=== PATIENT | male | born 1940 | race Caucasian/White ===

== ENCOUNTER → 2019-10-11 | Outpatient (CLI) | payer OTHER ==
[~2019-10-11] MED LIST: ADVAIR 100-501 EACH; ADVAIR HFA 230M12 GM INH; ALDACTONE25 MG; ASPIRIN81 M2; ATORVASTATIN CA80 MG PO; BRILINTA90 MG; CARVEDILOL25 MG PO; CENTRUM SILVER1 EAC4 PO; COZAAR 25 MG TA25 M1 PO; DIOVAN 80 MG TA80 M1 PO; DYAZIDE 37.5-21 EACH PO; EFFEXOR XR75 MG PO; ELIQUIS5 MG PO; LEVOTHYROXINE0.05 MG; LISINOPRIL5 MG; PROSCAR 5MG TABL5 M1 PO; PROTONIX40 M2 PO; SOTALOL80 MG PO; TAPAZOLE10 MG PO; TOPROL XL50 MG; VENTOLIN HFA INH8 GM
== END ==
LOC: SJCVC 09:07
DX: R94.31 Abnormal electrocardiogram [ECG] [EKG] (principal); I48.0 Paroxysmal atrial fibrillation; I47.2 Ventricular tachycardia; I25.5 Ischemic cardiomyopathy; Z95.810 Presence of automatic (implantable) cardiac defibrillator

== ENCOUNTER → 2020-01-11 | Outpatient (CLI) | payer OTHER ==
[~2020-01-11] MED LIST changes: +DIGOXIN250 MCG PO; +IMDUR 30 MG TAB30 M1 PO; +XANAX 0.5 MG0.5 MG PO
== END ==
LOC: SJCVC 14:24
PROVIDERS: ATTEND Internal Medicine Cardiovascular Disease
DX: Z45.02 Encounter for adjustment and management of automatic implantable cardiac defibrillator (principal); I25.10 Atherosclerotic heart disease of native coronary artery without angina pectoris; I48.91 Unspecified atrial fibrillation; I45.10 Unspecified right bundle-branch block; R94.31 Abnormal electrocardiogram [ECG] [EKG]; I49.01 Ventricular fibrillation; I47.2 Ventricular tachycardia; I25.5 Ischemic cardiomyopathy; I11.0 Hypertensive heart disease with heart failure; I50.9 Heart failure, unspecified; E05.90 Thyrotoxicosis, unspecified without thyrotoxic crisis or storm; I25.2 Old myocardial infarction; E78.5 Hyperlipidemia, unspecified; Z98.61 Coronary angioplasty status; Z82.49 Family history of ischemic heart disease and other diseases of the circulatory system; Z79.899 Other long term (current) drug therapy; Z95.810 Presence of automatic (implantable) cardiac defibrillator